=== PATIENT | male | born 1950 | race Caucasian/White ===

== ENCOUNTER 2018-04-09 23:37 | Inpatient (IN) | payer MEDICARE, OTHER ==
[~2018-04-09] VITALS: Ht 167.6 cm; Wt 108.9 kg
[2018-04-10] VITALS: BP 136/83
[2018-04-10] MEDS ORDERED: EPLE50TA PO (00:28)
[2018-04-10] MEDS ORDERED: ALLO300T2 PO (00:28)
[2018-04-10] MEDS ORDERED: LEVO50TA8 PO (00:28)
[2018-04-10] MEDS ORDERED: LINA5TAB PO (00:28)
[2018-04-10] MEDS ORDERED: ICOS1CAP PO (00:28)
[2018-04-10] MEDS ORDERED: CARV25TA2 PO (00:28)
[2018-04-10] MEDS ORDERED: FURO-144 PO (00:28)
[2018-04-10] MEDS ORDERED: TAMS-12 PO (00:28)
[2018-04-10] MEDS ORDERED: AMLO1TAB2 PO (00:28)
[2018-04-10] MEDS ORDERED: ROSU40TA PO (00:28)
[2018-04-10] MEDS ORDERED: ASPI-1169 PO (00:28)
--- NOTE | 2018-04-10 01:19 | NUR ---
GUIDE ESCORTCEMENT DESPATCH OPERATOR RECEIVE PT VIA SATHISH 04/09/18 @ 4390 FROM [facility] ADMIT TO TELE SOB, ON 3LPM VIA CA 02 SAT AT 95%. NOT IN RESPIRATORY DISTRESS. SR 92 IN THE TELE MTR. HEAD TO TOE ASSESSMENT IS DONE SKIN IS INTACT, DENIES CHEST PAIN AND FEVER. NO C/O OF N,V,D. RESPIRATIONS EVEN AND UNLABORED. REVIEW ALL HOME MEDICATION WITH THE PT, PT VERBALIZED HIS WILL BRING COPY OF HIS HOME MEDICATION IN THE MORNING TODAY. KEPT CLEAN AND DRY AND COMFORT. SAFETY MEASURES IN PLACE. WILL CONT TO MTR.
[2018-04-10] MEDS ORDERED: ZOLPIDEM TARTRATE 5 MG TABLET PO PRN (01:30)
[2018-04-10] MEDS ORDERED: ONDANSETRON HCL/PF 4 MG/2 ML VIAL IVP PRN (01:30)
[2018-04-10] MEDS ORDERED: MAG HYDROX/AL HYDROX/SIMETH 30 ML UDC PO PRN (01:30)
[2018-04-10] MEDS ORDERED: BUMETANIDE INJ 0.25 MG/ML VIAL IV ONE ×2 (01:30→02:30)
[2018-04-10] MEDS ORDERED: MAGNESIUM HYDROXIDE 30 ML UDC PO PRN (01:30)
[2018-04-10] MEDS ORDERED: ACETAMINOPHEN 325 MG TABLET PO PRN (01:30)
[2018-04-10] MEDS ORDERED: ENOXAPARIN SODIUM 30 MG/0.3 ML DISP.SYRIN SQ ONE (02:00)
[2018-04-10] MEDS: FUROSEMIDE 40 MG TABLET PO SCH ×3 (02:23→16:59)
[2018-04-10] MEDS: BLOOD SUGAR DIAGNOSTIC 1 EACH STRIP IN SCH ×5 (02:30→21:02)
[2018-04-10] MEDS ORDERED: DEXTROSE 50%-WATER 50 ML DISP.SYRIN IV PRN (02:30)
[2018-04-10] MEDS: INSULIN REGULAR, HUMAN 100 UNIT/ML 3 ML VIAL SQ PRN ×5 (02:31→21:06)
--- NOTE | 2018-04-10 02:33 | NUR ---
FF UP: PER ILIR PHARMACIST SHE SPOKE TO JEREMY AND PER JEREMY HE WILL THE ONE PUTTING TSH LEVEL ORDER
--- NOTE | 2018-04-10 02:34 | NUR ---
PT REFUSED SLIDING SCALE COVERAGE OF 2 UNITS DESPITE EXPLAINING RISKS AND BENEFITS OFFERED 3 TIMES STILL R EFUSED PT BLOOD SUGAR 140 MG/DL
[2018-04-10 04:00] VITALS: BP 107/69
--- NOTE | 2018-04-10 06:24 | NUR ---
[place] MACHINIST CLOSING NOTE ASLEEP AND EASILY AWAKEN, ON 3LPM VIA NC 02 SAT AT 96% WITH SR 92 IN TELE MONITOR, RESPIRATIONS EVEN AND UNLABORED. AM CARE RENDERED. NO COMPLAIN OF CHEST PAIN, IN STABLE CONDITION, NOT IN DISTRESS. NURSING CARE RENDERED, KEPT CLEAN AND DRY AND COMFORT, NEEDS ATTENDED AND ANTICIPATED. SAFETY MEASURES IN PLACE, CALL LIGHT WITHIN REACH. WILL ENDORSE TO STADIUM MANAGER FOR ROHINI.
--- NOTE | 2018-04-10 06:30 | NUR ---
PT REFUSED SLIDING SCALE COVERAGE OF 2 UNITS DESPITE EXPLAINING RISKS AND BENEFITS OFFERED 3 TIMES STILL REFUSED PT BLOOD SUGAR 138 MG/DL
[2018-04-10 06:35] LABS: MAGNESIUM 1.9 mg/dL (1.8-2.4); PHOSPHORUS 4.5 mg/dL (2.5-4.9); POTASSIUM 3.8 mmol/L (3.5-5.1)
[2018-04-10 06:36] LABS: BASOPHILS # (AUTO) 0.1 /CMM (0.0-0.2); EOSINOPHILS % (AUTO) 1.9 % (0.0-6.0); HEMATOCRIT 40 % (39-51); HEMOGLOBIN 13.5 g/dL (13.5-17.5); LYMPHOCYTES # (AUTO) 1.7 /CMM (0.8-4.8); LYMPHOCYTES % (AUTO) 17.1 % (20.0-44.0); MEAN CORPUSCULAR HGB CONC 34 g/dl (31.0-36.0); MEAN CORPUSCULAR VOLUME 89 fL (80-96); MONOCYTES # (AUTO) 0.6 /CMM (0.1-1.30); MONOCYTES % (AUTO) 6.6 % (2.0-12.0); NEUTROPHILS # (AUTO) 7.2 /CMM (1.8-8.9); NEUTROPHILS % (AUTO) 73.4 % (43.0-81.0); PLATELET COUNT (AUTO) 136 /CMM (150-450); RED BLOOD CELL COUNT(AUTO) 4.43 MIL/uL (4.5-6.0); WHITE BLOOD COUNT (AUTO) 9.7 K/uL (4.3-11.0)
--- NOTE | 2018-04-10 07:56 | NUR ---
CEO AND PRESIDENT NOTES PATIENT IN BED RESTING ALERT, ORIENTED X3 DENIES ANY PAIN OR DISCOMFORT. PERIPHERAL IV INTACT PATENT. BED IN LOW LOCKED POSITION. CALL LIGHT WITHIN REACH. WILL CONTINUE TO MONITOR.
[2018-04-10 08:00] VITALS: BP 107/69
[2018-04-10 08:19] LABS: ALBUMIN 3.7 g/dL (3.4-5.0); BILIRUBIN,DIRECT 0.1 mg/dL (0.0-0.2); BILIRUBIN,TOTAL 0.8 mg/dL (0.2-1.0); TOTAL PROTEIN, SERUM 7.8 g/dL (6.4-8.2)
[2018-04-10 08:21] LABS: THYROID STIMULATING HORMONE 2.764 uIU/mL (0.358-3.74)
[2018-04-10] MEDS: ASPIRIN 81 MG TAB.CHEW PO SCH (08:49)
[2018-04-10] MEDS: LINAGLIPTIN 5 MG TABLET PO SCH (08:49)
[2018-04-10] MEDS: ALLOPURINOL 100 MG TABLET PO SCH (08:49)
[2018-04-10] MEDS: CARVEDILOL 12.5 MG TABLET PO SCH ×2 (08:50→17:02)
[2018-04-10] MEDS: AMLODIPINE BESYLATE 10 MG TABLET PO SCH (08:53)
[2018-04-10] MEDS ORDERED: LEVOTHYROXINE SODIUM 50 MCG TABLET PO SCH (09:00)
[2018-04-10] MEDS ORDERED: CHOL100044 PO (11:30)
[2018-04-10] MEDS ORDERED: AMLO10TA7 PO (11:30)
[2018-04-10] MEDS ORDERED: AZIL40TA PO (11:30)
[2018-04-10] MEDS ORDERED: CHLO25TA2 PO (11:30)
[2018-04-10] MEDS ORDERED: POLYETHYLENE GLYCOL 3350 17 GM POWD.PACK PO PRN (13:00)
[2018-04-10 16:04] VITALS: BP 101/69
[2018-04-10] MEDS: AZITHROMYCIN 250 MG TABLET PO SCH (17:04)
[2018-04-10] MEDS: CEFTRIAXONE 1 G in IV D5W 50 ML IV SCH (18:10)
--- NOTE | 2018-04-10 18:25 | NUR ---
MS RN NOTES PATIENT IN BED RESTING ALERT, ORIENTED X3. DENIES ANY PAIN OR DISCOMFORT. ALL DUE MEDICATIONS ADMINISTERED. ALL NEEDS MET. PERIPHERAL IV INTACT PATENT. NO ACUTE CHANGES NOTED. WILL CONTINUE TO MONITOR.
--- NOTE | 2018-04-10 19:00 | NUR ---
MS RN RECEIVED PT ON BED, A/O X4, NOT IN ANY FORM OF DISTRESS, RESPIRATIONS EVEN AND UNLABORED,NO SOB NOTED, STABLE CONDITION. SAFETY MEASURES IN PLACE. WILL CONTINUE TO MONITOR.
[2018-04-10 20:00] VITALS: BP 118/59
[2018-04-10] MEDS: ENOXAPARIN SODIUM 30 MG/0.3 ML DISP.SYRIN SQ SCH (20:22)
[2018-04-10] MEDS: TAMSULOSIN 0.4 MG CAP.SR.24H PO SCH (21:10)
[2018-04-10] MEDS: ATORVASTATIN 40 MG TABLET PO SCH (21:10)
[2018-04-11] MEDS: BLOOD SUGAR DIAGNOSTIC 1 EACH STRIP IN SCH ×4 (06:01→22:24)
--- NOTE | 2018-04-11 06:02 | NUR ---
RN CLOSING NOTE AWAKE WATCHING TV. ON 3LPM VIA NC 02 SAT AT 95% NOT IN DISTRESS. STABLE, NURSING CARE RENDERED, KEPT CLEAN AND DRY AND COMFORT, NEEDS ATTENDED AND ANTICIPATED. NO COMPLAIN OF PAIN. SAFETY MEASURES IN PLACE, CALL LIGHT WITHIN REACH. WILL ENDORSE TO DECK BUILDER FOR ROHINI.
[2018-04-11] MEDS: INSULIN REGULAR, HUMAN 100 UNIT/ML 3 ML VIAL SQ PRN ×4 (06:11→22:19)
[2018-04-11 06:45] LABS: BASOPHILS # (AUTO) 0.1 /CMM (0.0-0.2); BASOPHILS % (AUTO) 0.8 % (0.0-2.0); EOSINOPHILS % (AUTO) 2.8 % (0.0-6.0); HEMATOCRIT 36 % (39-51); HEMOGLOBIN 12.3 g/dL (13.5-17.5); LYMPHOCYTES # (AUTO) 1.7 /CMM (0.8-4.8); LYMPHOCYTES % (AUTO) 23.9 % (20.0-44.0); MEAN CORPUSCULAR HGB CONC 34 g/dl (31.0-36.0); MEAN CORPUSCULAR VOLUME 89 fL (80-96); MONOCYTES # (AUTO) 0.6 /CMM (0.1-1.30); MONOCYTES % (AUTO) 7.8 % (2.0-12.0); NEUTROPHILS # (AUTO) 4.7 /CMM (1.8-8.9); NEUTROPHILS % (AUTO) 64.7 % (43.0-81.0); PLATELET COUNT (AUTO) 116 /CMM (150-450); WHITE BLOOD COUNT (AUTO) 7.2 K/uL (4.3-11.0)
[2018-04-11 07:00] LABS: CALCIUM, SERUM 8.5 mg/dL (8.5-10.1); CREATININE 3.6 mg/dL (0.6-1.3); MAGNESIUM 2.2 mg/dL (1.8-2.4); PHOSPHORUS 6.5 mg/dL (2.5-4.9); POTASSIUM 3.4 mmol/L (3.5-5.1)
[2018-04-11 08:00] VITALS: BP 100/67
[2018-04-11] MEDS: CARVEDILOL 12.5 MG TABLET PO SCH ×2 (08:00→18:00)
--- NOTE | 2018-04-11 08:00 | NUR ---
rn notes RECEIVED PATIENT IN THE BED, A/O X4 ON O2-2LNC, PATIENT REFUSED SOB AT THIS TIME, NO LABORED, V/S TAKEN HELD BP MEDICATION BP 100/67, PATIENT AMBULATORY SELF CARE, REFUSED PAIN AT THIS TIME. SCHEDULED MEDICATION ADMINISTERED,, NEEDS ATTENDED AND ANTICIPATED, TEAGAN REYES NEAR TO REACH CONTINUED MONITORING.
[2018-04-11] MEDS: ASPIRIN 81 MG TAB.CHEW PO SCH (08:15)
[2018-04-11] MEDS: ALLOPURINOL 100 MG TABLET PO SCH (08:15)
[2018-04-11] MEDS: FUROSEMIDE 40 MG TABLET PO SCH ×2 (08:15→17:27)
[2018-04-11] MEDS: LEVOTHYROXINE SODIUM 75 MCG TABLET PO SCH (08:15)
[2018-04-11] MEDS: LINAGLIPTIN 5 MG TABLET PO SCH (08:15)
[2018-04-11] MEDS: AMLODIPINE BESYLATE 10 MG TABLET PO SCH (08:16)
[2018-04-11 09:10] LABS: BASOPHILS # (AUTO) 0.1 /CMM (0.0-0.2); BASOPHILS % (AUTO) 1.4 % (0.0-2.0); EOSINOPHILS % (AUTO) 2.6 % (0.0-6.0); HEMATOCRIT 36 % (39-51); HEMOGLOBIN 12.3 g/dL (13.5-17.5); LYMPHOCYTES # (AUTO) 1.5 /CMM (0.8-4.8); LYMPHOCYTES % (AUTO) 21.2 % (20.0-44.0); MEAN CORPUSCULAR HGB CONC 34 g/dl (31.0-36.0); MEAN CORPUSCULAR VOLUME 89 fL (80-96); MONOCYTES # (AUTO) 0.5 /CMM (0.1-1.30); MONOCYTES % (AUTO) 7.3 % (2.0-12.0); NEUTROPHILS # (AUTO) 4.7 /CMM (1.8-8.9); NEUTROPHILS % (AUTO) 67.5 % (43.0-81.0); PLATELET COUNT (AUTO) 121 /CMM (150-450)
[2018-04-11 09:27] LABS: ALBUMIN 3.4 g/dL (3.4-5.0); BILIRUBIN,TOTAL 0.5 mg/dL (0.2-1.0); CALCIUM, SERUM 8.6 mg/dL (8.5-10.1); CREATININE 3.5 mg/dL (0.6-1.3); MAGNESIUM 2.1 mg/dL (1.8-2.4); PHOSPHORUS 6.3 mg/dL (2.5-4.9); POTASSIUM 3.5 mmol/L (3.5-5.1); TOTAL PROTEIN, SERUM 7.3 g/dL (6.4-8.2)
[2018-04-11] MEDS ORDERED: POTASSIUM CL. PREMIX PERIPHER. 50 ML IV SCH (09:30)
--- NOTE | 2018-04-11 10:00 | NUR ---
RN NOTES PATIENT STABLE, NO SOB AT THIS TIME, CHECKED O2-94 ON ROOM AIR PER CARDIOLOGY ORDER, PATIENT SITTING. NEXT TO THE BED. CONTINUED MONITORING.
--- NOTE | 2018-04-11 12:52 | NUR ---
RN NOTES BS-225 MG/DL, COVERAGE GIVEN, V/S TAKEN STABLE, SAFETY PRECAUTION MAINTAINED ALL THE TIME.
[2018-04-11 16:00] VITALS: BP 100/67
--- NOTE | 2018-04-11 17:00 | NUR ---
RN NOTES BS-169 MG/DL, V/S TAKEN STABLE, ADMINISTERED SCHEDULED [id number], FAMILY NEXT TO THE BED, SAFETY PRECAUTION MAINTAINED ALL THE TIME.
[2018-04-11] MEDS: LACTOBACILLUS RHAMNOSUS GG 1 EACH CAP.SPRINK PO SCH (17:27)
[2018-04-11] MEDS: CEFTRIAXONE 1 G in IV D5W 50 ML IV SCH (17:27)
[2018-04-11] MEDS: AZITHROMYCIN 250 MG TABLET PO SCH (17:30)
--- NOTE | 2018-04-11 18:00 | NUR ---
RN NOTES BP 100/67, HELD MEDICATION 1800.
--- NOTE | 2018-04-11 18:30 | NUR ---
RN NOTES PATIENT STABLE, NO SOB, AMBULATORY. PATIENT REFUSED PAIN AT THIS TIME. NEEDS ATTENDED AND ANTICIPATED, CALL LIGHT TO REACH. ENDORSED ONCOMING NURSE FOR PLAN OF CARE.
--- NOTE | 2018-04-11 19:50 | NUR ---
RN NOTES RECEIVED PATIENT AWAKE, NO ACUTE RESPIRATORY DISTRESS NOTED, ON O2 @ 3LPM VIA NC, CALM AND RESTING COMFORTABLY, IV ACCESS ON HIS LEFT AC G#20 INTACT AND PATENT, ALL SAFETY MEASURES IN PLACED, BED IN LOW LOCK POSITION, ASPIRATION PRECAUTION MAINTAINED, NO SIGNS OF DISCOMFORT NOTED, ALL NEEDS ATTENDED. WILL CONTINUE TO MONITOR ACCORDINGLY.
[2018-04-11 20:00] VITALS: BP 115/71
[2018-04-11 20:41] VITALS: BP 115/71
[2018-04-11] MEDS: ENOXAPARIN SODIUM 30 MG/0.3 ML DISP.SYRIN SQ SCH (21:36)
[2018-04-11] MEDS: ATORVASTATIN 40 MG TABLET PO SCH (21:37)
[2018-04-11] MEDS: TAMSULOSIN 0.4 MG CAP.SR.24H PO SCH (21:37)
[2018-04-12 06:05] LABS: BASOPHILS # (AUTO) 0.1 /CMM (0.0-0.2); BASOPHILS % (AUTO) 1.2 % (0.0-2.0); EOSINOPHILS % (AUTO) 3.3 % (0.0-6.0); HEMATOCRIT 36 % (39-51); HEMOGLOBIN 12.3 g/dL (13.5-17.5); LYMPHOCYTES # (AUTO) 1.8 /CMM (0.8-4.8); LYMPHOCYTES % (AUTO) 25.8 % (20.0-44.0); MEAN CORPUSCULAR HGB CONC 35 g/dl (31.0-36.0); MEAN CORPUSCULAR VOLUME 88 fL (80-96); MONOCYTES # (AUTO) 0.5 /CMM (0.1-1.30); MONOCYTES % (AUTO) 6.8 % (2.0-12.0); NEUTROPHILS # (AUTO) 4.5 /CMM (1.8-8.9); NEUTROPHILS % (AUTO) 62.9 % (43.0-81.0); PLATELET COUNT (AUTO) 123 /CMM (150-450); RED BLOOD CELL COUNT(AUTO) 4.04 MIL/uL (4.5-6.0); WHITE BLOOD COUNT (AUTO) 7.1 K/uL (4.3-11.0)
--- NOTE | 2018-04-12 06:11 | NUR ---
RN NOTES ALL NEEDS ATTENDED AND MET, NO SIGNS OF ACUTE DISTRESS NOTED, NO COMPLAINTS OF ANY PAIN OR DISCOMFORT, ABLE TO REST AND SLEEP WITH LONG INTERVALS. WILL ENDORSE TO AM NURSE FOR CONTINUITY OF CARE.
[2018-04-12 06:26] LABS: CALCIUM, SERUM 8.7 mg/dL (8.5-10.1); CREATININE 3.2 mg/dL (0.6-1.3); MAGNESIUM 2.1 mg/dL (1.8-2.4); PHOSPHORUS 5.9 mg/dL (2.5-4.9); POTASSIUM 3.1 mmol/L (3.5-5.1)
[2018-04-12] MEDS: BLOOD SUGAR DIAGNOSTIC 1 EACH STRIP IN SCH (06:40)
[2018-04-12] MEDS: INSULIN REGULAR, HUMAN 100 UNIT/ML 3 ML VIAL SQ PRN (06:46)
--- NOTE | 2018-04-12 07:29 | NUR ---
RN OPENING NOTE PT WAS RECEIVED IN BED AT LOWEST AND LOCKED POSITION WITH SIDE RAILS UP X2, A/O X4, BREATHING EVEN AND UNLABORED, NO S/S OF PAIN OR DISTRESS NOTED, IV IS PATENT AND INTACT, SAFETY PRECAUTIONS IN PLACE, CALL LIGHT WITHIN REACH, WILL MONITOR ACCORDINGLY
[2018-04-12 08:00] VITALS: BP 110/75
[2018-04-12] MEDS: CARVEDILOL 12.5 MG TABLET PO SCH (08:00)
--- NOTE | 2018-04-12 08:10 | NUR ---
RN NOTES JACEK ROBISON NOTIFIED ME OF PT BP OF 76/43, DR. MOCTEZUMA WAS MADE AWARE AND WAS ORDERED TO TAKE BP MANUALLY. MANUAL BP WAS TAKEN AND WAS NOTED TO BE 110/[address] MOCTEZUMA MADE AWARE. COREG AND NORVASC WERE HELD, BUT LASIX WAS GIVEN. WILL MONITOR ACCORDINGLY.
[2018-04-12] MEDS: ASPIRIN 81 MG TAB.CHEW PO SCH (08:25)
[2018-04-12] MEDS: LEVOTHYROXINE SODIUM 75 MCG TABLET PO SCH (08:25)
[2018-04-12] MEDS: ALLOPURINOL 100 MG TABLET PO SCH (08:25)
[2018-04-12] MEDS: FUROSEMIDE 40 MG TABLET PO SCH (08:26)
[2018-04-12] MEDS: LINAGLIPTIN 5 MG TABLET PO SCH (08:26)
[2018-04-12] MEDS: POTASSIUM CHLORIDE 20 MEQ TAB.PRT.SR PO SCH ×3 (08:26→10:20)
[2018-04-12] MEDS: LACTOBACILLUS RHAMNOSUS GG 1 EACH CAP.SPRINK PO SCH (08:26)
[2018-04-12 08:27] VITALS: BP 106/72
[2018-04-12] MEDS: AMLODIPINE BESYLATE 10 MG TABLET PO SCH (08:27)
[2018-04-12] MEDS ORDERED: AZIT250T PO (09:29)
[2018-04-12] MEDS ORDERED: LACT1CAP72 PO (09:29)
[2018-04-12] MEDS ORDERED: POTA20TA83 PO (09:29)
--- NOTE | 2018-04-12 10:45 | NUR ---
RN NOTE PT WANTED BP CHECKED AND WAS NOTED TO BE 112/76
--- NOTE | 2018-04-12 10:59 | NUR ---
DISCHARGE NOTE PT WAS D/C IN MEDICALLY STABLE CONDITION BACK HOME AT THIS TIME IN HIS PRIVATE CAR WITH HIS . ALL D/C PAPERWORK, EXITCARE, AND BELONGING LIST WERE DISCUSSED, SIGNED, AND HANDED TO THE PATIENT. IV AND ID BAND WERE REMOVED. PT SKIN WAS DRY AND INTACT WITH NO WOUND DOCUMENTATION NEEDED. HE WAS TOLD ABOUT HIS NEW PRESCRIPTIONS AND TO FOLLOW UP OUTPATIENT WITH HIS DOCTORS. ALL NEEDS WERE ATTENDED TO DURING HIS STAY. HE WAS TAKEN DOWN BY ME VIA WHEELCHAIR WHERE HE LEFT WITH HIS IN THEIR PRIVATE CAR.
== END 2018-04-12 11:00 | disposition home or self-care (01) | DRG 291 ==
LOC: TELE 23:37 → MED 04-10 08:26
PROVIDERS: ADMIT Registered Nurse; ATTEND Registered Nurse
DX: I13.0 Hypertensive heart and chronic kidney disease with heart failure and stage 1 through stage 4 chronic kidney disease, or unspecified chronic kidney disease (principal); I50.43 Acute on chronic combined systolic (congestive) and diastolic (congestive) heart failure; J15.9 Unspecified bacterial pneumonia; J96.90 Respiratory failure, unspecified, unspecified whether with hypoxia or hypercapnia; N17.9 Acute kidney failure, unspecified; I25.5 Ischemic cardiomyopathy; I25.10 Atherosclerotic heart disease of native coronary artery without angina pectoris; E66.01 Morbid (severe) obesity due to excess calories; E11.22 Type 2 diabetes mellitus with diabetic chronic kidney disease; M10.9 Gout, unspecified; N18.9 Chronic kidney disease, unspecified; Z87.891 Personal history of nicotine dependence; Z68.38 Body mass index [BMI] 38.0-38.9, adult
CPT/HCPCS: 36415; 71045-TC; 76770-TC; 80048-TC; 80053-TC; 80061-TC; 80076-TC; 82962-TC; 83735-TC; 84100-TC; 84439-TC; 84443-TC; 84484-TC; 85025-TC; 87081-TC; 93307-TC; G0378; J0696; J1650; J1815; J3490; J7050; J7060

== ENCOUNTER 2023-03-12 08:03 | Inpatient (IN) | payer MEDICARE, OTHER ==
[~2023-03-12] VITALS: Ht 167.6 cm; Wt 95.3 kg
[~2023-03-12 08:03] MED LIST: ALLO300T2 PO; AMLO-213 PO; ASPI-1169 PO; AZIL40TA PO; AZIT250T PO; CARV25TA2 PO; CHLO25TA2 PO; CHOL100044 PO; EPLE50TA PO; FURO-144 PO; ICOS1CAP PO; LACT1CAP72 PO; LEVO50TA8 PO; LINA5TAB PO; POTA20TA83 PO; ROSU40TA PO; TAMS-12 PO
[2023-03-12 08:48] LABS: BASOPHILS # (AUTO) 0.1 K/uL (0.0-0.2); BASOPHILS % (AUTO) 0.9 % (0.0-2.0); EOSINOPHILS # (AUTO) 0.1 K/uL (0.0-0.7); EOSINOPHILS % (AUTO) 1.6 % (0.0-6.0); HEMATOCRIT 31 % (39-51); HEMOGLOBIN 10.5 g/dL (13.5-17.5); LYMPHOCYTES # (AUTO) 0.9 K/uL (0.8-4.8); LYMPHOCYTES % (AUTO) 11.1 % (20.0-44.0); MEAN CORPUSCULAR HEMOGLOBIN 31 PG (26.0-33.0); MEAN CORPUSCULAR HGB CONC 33 g/dl (31.0-36.0); MEAN CORPUSCULAR VOLUME 94 fL (80-96); MONOCYTES # (AUTO) 0.3 K/uL (0.1-1.30); MONOCYTES % (AUTO) 4.3 % (2.0-12.0); NEUTROPHILS # (AUTO) 6.4 K/uL (1.8-8.9); NEUTROPHILS % (AUTO) 82.1 % (43.0-81.0); PLATELET COUNT (AUTO) 149 K/uL (150-450); RED BLOOD CELL COUNT(AUTO) 3.35 MIL/uL (4.5-6.0); RED CELL DISTRIBUTION WIDTH 16.9 % (11.5-15.0); WHITE BLOOD COUNT (AUTO) 7.7 K/uL (4.3-11.0)
[2023-03-12] MEDS ORDERED: ALBUTEROL FS 2.5 MG/3 ML VIAL.NEB NEB ONE ×2 (09:00→12:00)
[2023-03-12] MEDS ORDERED: IPRATROPIUM NEB FS 0.5 MG/2.5 ML AMPUL.NEB NEB ONE (09:00)
[2023-03-12 09:05] LABS: CALCIUM, SERUM 9.5 mg/dL (8.5-10.1); CARBON DIOXIDE 32 mmol/L (21-32); CHLORIDE 97 mmol/L (98-107); CREATININE 3.8 mg/dL (0.6-1.3); GLUCOSE 119 mg/dL (74-106); POTASSIUM 3.6 mmol/L (3.5-5.1); SODIUM SERUM 138 mmol/L (136-145); UREA NITROGEN, BLOOD 15 mg/dL (7-18)
[2023-03-12 09:10] LABS: ALANINE AMINOTRANSFERASE 14 U/L (12-78); ALBUMIN 3.8 g/dL (3.4-5.0); ALKALINE PHOSPHATASE 60 U/L (46-116); ASPARTATE AMINOTRANSFERASE 7 U/L (15-37); BILIRUBIN,DIRECT 0.2 mg/dL (0.0-0.2); BILIRUBIN,TOTAL 1.3 mg/dL (0.2-1.0); TOTAL PROTEIN, SERUM 8.1 g/dL (6.4-8.2)
[2023-03-12 09:15] LABS: INR 1.06 (0.91-1.10); PARTIAL THROMBOPLASTIN TIME 27.2 SEC (24.3-34.3); PROTHROMBIN TIME 11.2 SECS (9.2-11.1)
[2023-03-12 09:22] LABS: LACTIC ACID 1.2 mmol/L (0.4-2.0)
[2023-03-12] MEDS ORDERED: ALBUTEROL FS 2.5 MG/3 ML VIAL.NEB ONE ×2 (09:27→12:59)
[2023-03-12] MEDS ORDERED: IPRATROPIUM NEB FS 0.5 MG/2.5 ML AMPUL.NEB ONE (09:27)
[2023-03-12] MEDS ORDERED: LEVO200T8 PO (10:04)
[2023-03-12] MEDS ORDERED: TAMS-12 PO (10:04)
[2023-03-12] MEDS ORDERED: LINA5TAB PO (10:04)
[2023-03-12] MEDS ORDERED: SACU1TAB PO (10:04)
[2023-03-12] MEDS ORDERED: ROSU40TA PO (10:04)
[2023-03-12] MEDS ORDERED: BUME2TAB7 PO (10:04)
[2023-03-12] MEDS ORDERED: FINA5TAB4 PO (10:04)
[2023-03-12] MEDS ORDERED: INSU100I35 SQ (10:04)
[2023-03-12] MEDS ORDERED: INSU100V7 SQ (10:04)
[2023-03-12] MEDS ORDERED: SEVE800T8 PO (10:04)
[2023-03-12] MEDS ORDERED: ICOS1CAP PO (10:04)
[2023-03-12] MEDS ORDERED: PANT40TA2 PO (10:04)
[2023-03-12 10:10] VITALS: O2SAT 93
[2023-03-12 10:22] VITALS: O2SAT 100
[2023-03-12 13:02] VITALS: O2SAT 94
[2023-03-12 13:15] VITALS: O2SAT 94
[2023-03-12] MEDS ORDERED: ONDANSETRON HCL/PF 4 MG/2 ML VIAL IVP PRN (16:30)
[2023-03-12] MEDS ORDERED: LEVOFLOXACIN 250 MG /D5W 50 ML 250 MG in PREMIX 1 EA IV SCH (16:30)
[2023-03-12] MEDS ORDERED: ALBUTEROL FS 2.5 MG/0.5 ML VIAL.NEB NEB PRN (16:30)
[2023-03-12] MEDS ORDERED: ACETAMINOPHEN 325 MG TABLET PO PRN (16:30)
[2023-03-12] MEDS ORDERED: HYDROCODONE/APAP 5/325MG TABLET PO PRN (16:30)
[2023-03-12] MEDS ORDERED: IPRATROPIUM NEB FS 0.5 MG/2.5 ML AMPUL.NEB NEB PRN (16:30)
[2023-03-12] MEDS ORDERED: LEVOFLOXACIN 500 MG /D5W 100ML 500 MG in PREMIX 1 EA IV SCH (17:00)
[2023-03-12 18:01] VITALS: BP 116/68; TEMP 98.2; O2SAT 98
[2023-03-12 20:00] VITALS: BP 112/70; TEMP 98.2; O2SAT 97
[2023-03-12] MEDS: methylPREDNISolone SOD SUCC 40 MG/ML VIAL IV SCH (21:59)
[2023-03-13] VITALS: BP 112/76; TEMP 98.1; O2SAT 98
[2023-03-13 04:00] VITALS: BP 115/76; TEMP 98.3; O2SAT 99
[2023-03-13] MEDS: methylPREDNISolone SOD SUCC 40 MG/ML VIAL IV SCH ×3 (05:52→21:32)
[2023-03-13 06:58] LABS: BASOPHILS % (AUTO) 0.3 % (0.0-2.0); EOSINOPHILS % (AUTO) 0.2 % (0.0-6.0); HEMATOCRIT 30 % (39-51); LYMPHOCYTES # (AUTO) 0.4 K/uL (0.8-4.8); MEAN CORPUSCULAR HEMOGLOBIN 31 PG (26.0-33.0); MEAN CORPUSCULAR HGB CONC 34 g/dl (31.0-36.0); MEAN CORPUSCULAR VOLUME 93 fL (80-96); MONOCYTES # (AUTO) 0.1 K/uL (0.1-1.30); MONOCYTES % (AUTO) 1.8 % (2.0-12.0); NEUTROPHILS # (AUTO) 3.8 K/uL (1.8-8.9); NEUTROPHILS % (AUTO) 87.7 % (43.0-81.0); PLATELET COUNT (AUTO) 130 K/uL (150-450); RED BLOOD CELL COUNT(AUTO) 3.18 MIL/uL (4.5-6.0); WHITE BLOOD COUNT (AUTO) 4.4 K/uL (4.3-11.0)
[2023-03-13 07:28] LABS: CALCIUM, SERUM 9.3 mg/dL (8.5-10.1); CREATININE 5.6 mg/dL (0.6-1.3); MAGNESIUM 2.3 mg/dL (1.8-2.4); PHOSPHORUS 4.1 mg/dL (2.5-4.9); POTASSIUM 4.4 mmol/L (3.5-5.1)
[2023-03-13 08:00] VITALS: BP 132/71; TEMP 97.9; O2SAT 100
[2023-03-13] MEDS: PANTOPRAZOLE 40 MG TABLET.DR PO SCH (08:33)
[2023-03-13 12:00] VITALS: BP 130/71; TEMP 97.9; O2SAT 100
[2023-03-13] MEDS ORDERED: DEXTROSE 50%-WATER 50 ML DISP.SYRIN IV PRN (13:30)
[2023-03-13] MEDS: HEPARIN SODIUM, PORCINE 5000 UNITS/1 ML VIAL SQ SCH (14:00)
[2023-03-13] MEDS: VALSARTAN 80 MG TABLET PO SCH (14:30)
[2023-03-13] MEDS: ASPIRIN 81 MG TAB.CHEW PO SCH (15:01)
[2023-03-13] MEDS: CHOLECALCIFEROL 1,000 UNIT TABLET (VIT D3) PO SCH (15:02)
[2023-03-13] MEDS: TAMSULOSIN 0.4 MG CAP.SR.24H PO SCH ×3 (15:02→16:38)
[2023-03-13] MEDS: FINASTERIDE (5 MG) 5 MG TABLET PO SCH (15:02)
[2023-03-13] MEDS: LEVOTHYROXINE SODIUM 100 MCG TABLET PO SCH (15:04)
[2023-03-13] MEDS: LINAGLIPTIN 5 MG TABLET PO SCH (15:05)
[2023-03-13 16:00] VITALS: BP 111/75; TEMP 98.4; O2SAT 100
[2023-03-13] MEDS: BUMETANIDE (1 MG) 1 MG TABLET PO SCH (16:34)
[2023-03-13] MEDS: CARVEDILOL 12.5 MG TABLET PO SCH (16:35)
[2023-03-13] MEDS: SEVELAMER CARBONATE 800 MG TABLET PO SCH (17:06)
[2023-03-13] MEDS: INSULIN REGULAR, HUMAN 100 UNIT/ML 3 ML VIAL SQ PRN ×2 (17:11→22:35)
[2023-03-13] MEDS: BLOOD SUGAR DIAGNOSTIC 1 EACH STRIP IN SCH ×2 (17:41→22:32)
[2023-03-13 20:00] VITALS: BP 111/71; TEMP 98.4; O2SAT 100
[2023-03-13] MEDS: ATORVASTATIN 40 MG TABLET PO SCH (21:32)
[2023-03-14] VITALS: BP 115/75; TEMP 98.2; O2SAT 98
[2023-03-14] MEDS: HEPARIN SODIUM, PORCINE 5000 UNITS/1 ML VIAL SQ SCH ×2 (02:06→15:51)
[2023-03-14 04:00] VITALS: BP 108/66; TEMP 98; O2SAT 99
[2023-03-14] MEDS: methylPREDNISolone SOD SUCC 40 MG/ML VIAL IV SCH ×3 (04:35→21:32)
[2023-03-14] MEDS: BLOOD SUGAR DIAGNOSTIC 1 EACH STRIP IN SCH ×4 (06:09→21:33)
[2023-03-14] MEDS: INSULIN REGULAR, HUMAN 100 UNIT/ML 3 ML VIAL SQ PRN ×4 (06:16→22:51)
[2023-03-14 07:01] LABS: BASOPHILS % (AUTO) 0.1 % (0.0-2.0); HEMATOCRIT 28 % (39-51); HEMOGLOBIN 9.7 g/dL (13.5-17.5); LYMPHOCYTES # (AUTO) 0.4 K/uL (0.8-4.8); LYMPHOCYTES % (AUTO) 4.3 % (20.0-44.0); MEAN CORPUSCULAR HEMOGLOBIN 32 PG (26.0-33.0); MEAN CORPUSCULAR HGB CONC 34 g/dl (31.0-36.0); MEAN CORPUSCULAR VOLUME 93 fL (80-96); MONOCYTES # (AUTO) 0.1 K/uL (0.1-1.30); MONOCYTES % (AUTO) 1.3 % (2.0-12.0); NEUTROPHILS # (AUTO) 9.3 K/uL (1.8-8.9); NEUTROPHILS % (AUTO) 94.3 % (43.0-81.0); PLATELET COUNT (AUTO) 114 K/uL (150-450); RED BLOOD CELL COUNT(AUTO) 3.04 MIL/uL (4.5-6.0); RED CELL DISTRIBUTION WIDTH 16.7 % (11.5-15.0); WHITE BLOOD COUNT (AUTO) 9.9 K/uL (4.3-11.0)
[2023-03-14 07:32] LABS: ALBUMIN 3.4 g/dL (3.4-5.0); BILIRUBIN,TOTAL 0.7 mg/dL (0.2-1.0); CALCIUM, SERUM 9.5 mg/dL (8.5-10.1); CREATININE 6.9 mg/dL (0.6-1.3); MAGNESIUM 2.6 mg/dL (1.8-2.4); PHOSPHORUS 4.7 mg/dL (2.5-4.9); POTASSIUM 4.6 mmol/L (3.5-5.1); TOTAL PROTEIN, SERUM 7.3 g/dL (6.4-8.2)
[2023-03-14] MEDS: PANTOPRAZOLE 40 MG TABLET.DR PO SCH (07:50)
[2023-03-14] MEDS: SEVELAMER CARBONATE 800 MG TABLET PO SCH ×3 (07:50→17:09)
[2023-03-14] MEDS: LEVOTHYROXINE SODIUM 100 MCG TABLET PO SCH (07:50)
[2023-03-14 08:00] VITALS: BP 116/73; TEMP 98.6; O2SAT 98
[2023-03-14] MEDS: CARVEDILOL 12.5 MG TABLET PO SCH ×3 (09:00→17:09)
[2023-03-14] MEDS: VALSARTAN 80 MG TABLET PO SCH ×2 (09:00→09:18)
[2023-03-14] MEDS: FINASTERIDE (5 MG) 5 MG TABLET PO SCH (09:18)
[2023-03-14] MEDS: TAMSULOSIN 0.4 MG CAP.SR.24H PO SCH ×2 (09:19→17:08)
[2023-03-14] MEDS: BUMETANIDE (1 MG) 1 MG TABLET PO SCH ×2 (09:19→17:09)
[2023-03-14] MEDS: LINAGLIPTIN 5 MG TABLET PO SCH (09:19)
[2023-03-14] MEDS: ASPIRIN 81 MG TAB.CHEW PO SCH (09:19)
[2023-03-14] MEDS: CHOLECALCIFEROL 1,000 UNIT TABLET (VIT D3) PO SCH (09:23)
[2023-03-14 12:00] VITALS: BP 119/72; TEMP 97.8; O2SAT 100
[2023-03-14 16:00] VITALS: BP 109/60; TEMP 97.4; O2SAT 100
[2023-03-14] MEDS ORDERED: LEVOFLOXACIN (250MG) 250 MG TABLET PO SCH (17:00)
[2023-03-14 20:00] VITALS: BP 114/69; TEMP 97.9; O2SAT 98
[2023-03-14] MEDS: ATORVASTATIN 40 MG TABLET PO SCH (21:33)
[2023-03-14] MEDS ORDERED: INSULIN GLARGINE, 100 UNIT/ML CARTRIDGE SQ SCH (22:00)
[2023-03-15] VITALS: BP 121/72; TEMP 97.5; O2SAT 99
[2023-03-15] MEDS: HEPARIN SODIUM, PORCINE 5000 UNITS/1 ML VIAL SQ SCH ×2 (03:54→13:23)
[2023-03-15 04:00] VITALS: BP 109/74; TEMP 97.9; O2SAT 97
[2023-03-15] MEDS: methylPREDNISolone SOD SUCC 40 MG/ML VIAL IV SCH (04:26)
[2023-03-15] MEDS: SEVELAMER CARBONATE 800 MG TABLET PO SCH ×2 (07:57→13:23)
[2023-03-15] MEDS: PANTOPRAZOLE 40 MG TABLET.DR PO SCH (07:57)
[2023-03-15] MEDS: LEVOTHYROXINE SODIUM 100 MCG TABLET PO SCH (07:58)
[2023-03-15 08:00] VITALS: BP 109/68; TEMP 98.6; O2SAT 98
[2023-03-15] MEDS: BLOOD SUGAR DIAGNOSTIC 1 EACH STRIP IN SCH ×2 (08:22→13:13)
[2023-03-15] MEDS: BUMETANIDE (1 MG) 1 MG TABLET PO SCH (08:44)
[2023-03-15] MEDS: ASPIRIN 81 MG TAB.CHEW PO SCH (08:44)
[2023-03-15] MEDS: CARVEDILOL 12.5 MG TABLET PO SCH (08:44)
[2023-03-15] MEDS: TAMSULOSIN 0.4 MG CAP.SR.24H PO SCH (08:45)
[2023-03-15] MEDS: CHOLECALCIFEROL 1,000 UNIT TABLET (VIT D3) PO SCH (08:45)
[2023-03-15] MEDS: LINAGLIPTIN 5 MG TABLET PO SCH (08:45)
[2023-03-15] MEDS: FINASTERIDE (5 MG) 5 MG TABLET PO SCH (08:45)
[2023-03-15] MEDS: VALSARTAN 80 MG TABLET PO SCH (08:46)
[2023-03-15] MEDS: INSULIN REGULAR, HUMAN 100 UNIT/ML 3 ML VIAL SQ PRN ×2 (08:48→13:13)
[2023-03-15] MEDS ORDERED: methylPREDNISolone SOD SUCC 40 MG/ML VIAL IV SCH (11:30)
[2023-03-15 12:00] VITALS: BP 131/76; TEMP 97; O2SAT 99
[2023-03-18 03:10] LABS: HEPATITIS B SURFACE AB Reactive (.)
== END 2023-03-15 16:18 | disposition home health service (06) | DRG 291 ==
LOC: ER 08:05 → TRANSITION 16:03 → TELE1 16:27
PROC: 5A1D70Z Performance of Urinary Filtration, Intermittent, Less than 6 Hours Per Day (ICD-10-PCS; principal; 2023-03-13)
DX: I13.2 Hypertensive heart and chronic kidney disease with heart failure and with stage 5 chronic kidney disease, or end stage renal disease (principal); J96.01 Acute respiratory failure with hypoxia; N18.6 End stage renal disease; J44.1 Chronic obstructive pulmonary disease with (acute) exacerbation; E87.1 Hypo-osmolality and hyponatremia; I50.42 Chronic combined systolic (congestive) and diastolic (congestive) heart failure; U09.9 Post COVID-19 condition, unspecified; I25.5 Ischemic cardiomyopathy; E66.9 Obesity, unspecified; Z68.33 Body mass index [BMI] 33.0-33.9, adult; E03.9 Hypothyroidism, unspecified; E78.5 Hyperlipidemia, unspecified; E11.22 Type 2 diabetes mellitus with diabetic chronic kidney disease; D64.9 Anemia, unspecified; I25.10 Atherosclerotic heart disease of native coronary artery without angina pectoris; M89.8X9 Other specified disorders of bone, unspecified site; Z79.4 Long term (current) use of insulin; Z79.82 Long term (current) use of aspirin; Z79.84 Long term (current) use of oral hypoglycemic drugs; Z79.899 Other long term (current) drug therapy; Z87.891 Personal history of nicotine dependence; Z95.810 Presence of automatic (implantable) cardiac defibrillator; Z99.2 Dependence on renal dialysis; G47.33 Obstructive sleep apnea (adult) (pediatric); Z79.890 Hormone replacement therapy
CPT/HCPCS: 36415; 71045-TC; 80048-TC; 80053-TC; 80076-TC; 82962-TC; 83605-TC; 83735-TC; 83880; 84100-TC; 84484-TC; 85025-TC; 85730-TC; 86706; 87040-TC; 87081-TC; 87340; 93307-TC; 97112-TC; 97116-TC; 97530-TC; A4216; A4223; G0378; J1644; J1815; J1956; J2920; J3490; J7030